=== PATIENT | male | born 1965 | race Caucasian/White ===

== ENCOUNTER 2016-06-27 16:59 | Emergency (ER) | payer OTHER ==
--- NOTE | ~2016-06-27 | CR112 ---
[facility] A Service of [facility] & [facility] RADIOLOGY TEXT RESULTS PATIENT: VALENTIN FONTAINE LOCATION: SED : 65 UNIT #: [id number] AGE: [address]: ADAM HAMEED SEX: M ORDER DR: [id number] [place] [id number] E MR#: [id number] Acc #: [id number] NAME: VALENTIN FONTAINE : 1965 SEX: M STUDY DATE/TIME: 06/27/2016 16:30 UNIT: SED ROOM: STUDY DESCRIPTION: CR Finger 2 View 4Th Lt Attending Physician: Adam Hameed Ordering Physician: Thor Yanez M.D. Primary Care Physician: No Primary Care Physician MEDICAL IMAGING REPORT This report is preliminary unless electronic signature is present. EXAM Left fourth finger. INDICATIONS Trauma to finger last night when the finger was smashed. FINDINGS 3 views of the left fourth finger were obtained. No fracture identified. The bones are normal. IMPRESSION Normal left fourth finger. Dictated by... Sagar Oreilly M.D. THIS IS AN ELECTRONICALLY VERIFIED REPORT Sagar Oreilly M.D. at 06/27/2016 9:54 PM ZULEMA/adi TD: 06/27/2016 20:48 JOB #: [id number] MEDICAL IMAGING REPORT Page 1 of 1
== END 2016-06-27 17:14 | disposition home or self-care (01) ==
LOC: SED 16:59
DX: S67.195A Crushing injury of left ring finger, initial encounter (principal); I10 Essential (primary) hypertension; E78.5 Hyperlipidemia, unspecified; F17.210 Nicotine dependence, cigarettes, uncomplicated; Z23 Encounter for immunization; X58.XXXA Exposure to other specified factors, initial encounter; Y92.89 Other specified places as the place of occurrence of the external cause
CPT/HCPCS: 73140; 90471; 90715; 99283